=== PATIENT | female | born 1990 | race Caucasian/White ===

== ENCOUNTER 2018-04-11 15:18 | Outpatient (CLI) | payer OTHER | END 2018-04-11 15:19 | disposition home or self-care (01) | LOC: CTENTCT 15:18 | PROVIDERS: ATTEND Otolaryngology Plastic Surgery within the Head & Neck | DX: J32.9 Chronic sinusitis, unspecified (principal) | CPT/HCPCS: 70486 ==

== ENCOUNTER 2020-03-15 10:42 | Outpatient (CLI) | payer OTHER ==
--- NOTE | 2020-03-15 16:59 | EKG ---
Test Reason : Blood Pressure : / mmHG Vent. Rate : 078 BPM Atrial Rate : 078 BPM P-R Int : 132 ms QRS Dur : 086 ms QT Int : 374 ms P-R-T Axes : 046 076 039 degrees QTc Int : 426 ms Normal sinus rhythm Normal ECG Confirmed by DR. Meghana AIKEN ([id number]) on 03/15/2020 4:59:16 PM Referred By: ARIEL KAY Confirmed By:DR. Meghana AIKEN
== END 2020-03-15 10:43 | disposition home or self-care (01) ==
LOC: EKG 10:42
PROVIDERS: ATTEND Advanced Practice Midwife
DX: I10 Essential (primary) hypertension (principal)
CPT/HCPCS: 93005; 93010